=== PATIENT | male | born 1960 | race Caucasian/White ===

== ENCOUNTER 2016-03-07 | Emergency (ER) | payer MEDICARE, OTHER ==
--- NOTE | 2016-03-07 12:28 | ED Physician Documentation ---
PD HPI URI - Stated complaint Stated Complaint: COUGH - Chief complaint Chief Complaint: Resp - History obtained from History obtained from: Patient - History of Present Illness Timing - onset: Other (This is a type II diabetic has been sick for about 8 days with a productive cough, been bloody, now yellow. He also has body aches, resolved vomiting and diarrhea, persistent headache. His is now ill with a similar illness. No recent travel.) Review of Systems Constitutional: reports: Chills, Myalgias, Fatigue Ears: denies: Ear pain Nose: reports: Rhinorrhea / runny nose Throat: reports: Sore throat Respiratory: reports: Cough. denies: Dyspnea GI: denies: Abdominal Pain PD PAST MEDICAL HISTORY - Past Medical History Cardiovascular: Hypertension, High cholesterol Neuro: Peripheral neuropathy Endocrine/Autoimmune: Type 2 diabetes GI: GERD Musculoskeletal: Chronic back pain - Past Surgical History Past Surgical History: Yes General: Appendectomy - Present Medications Home Medications: Ambulatory Orders Medication Instructions Recorded Confirmed Aspirin [Aspir 81] 1 tab PO DAILY 07/07/14 07/07/14 Atorvastatin [Lipitor] 40 mg PO DAILY 07/07/14 07/07/14 Esomeprazole Magnesium [Nexium] 40 mg PO BID 07/07/14 07/07/14 Fenofibrate 1 tab PO DAILY 07/07/14 07/07/14 Gabapentin 800 mg PO TID #20 tablet 07/07/14 Gabapentin 800 mg PO TID PRN 07/07/14 07/07/14 Loperamide HCl [Loperamide] 2 cap PO TID PRN 07/07/14 07/07/14 Metoprolol Xl 200 mg PO DAILY 07/07/14 07/07/14 Oxycodone HCl/Acetaminophen 1 - 2 tab PO TID PRN 07/07/14 07/07/14 [Percocet 5-325 mg Tablet] amLODIPine [Norvasc] 10 mg PO DAILY 07/07/14 07/07/14 Cephalexin [Keflex] 500 mg PO Q6H 7 Days 11/08/15 Doxycycline Hyclate 100 mg PO BID #14 tablet 03/07/16 guaiFENesin/CODEINE [Robitussin AC] 5 - 10 ml PO Q6H PRN #120 ml 03/07/16 - Allergies Allergies/Adverse Reactions: Allergies Allergy/AdvReac Type Severity Reaction Status Date / Time amitriptyline AdvReac Intermediate Dizziness Verified 07/07/14 03:59 tramadol AdvReac Intermediate Dizziness Verified 07/07/14 04:00 - Social History Does the pt smoke?: No Smoking Status: Never smoker Does the pt drink ETOH?: Yes Does the pt have substance abuse?: No - Immunizations Immunizations are current?: Yes Immunizations: TDAP current <10years - POLST Patient has POLST: No PD ED PE NORMAL - Vitals Vital signs reviewed: Yes - General General: Alert and oriented X 3, No acute distress - HEENT HEENT: PERRL, EOMI, Ears normal, Pharynx benign - Neck Neck: Supple, no meningeal sign, No bony TTP - Cardiac Cardiac: RRR, No murmur - Respiratory Respiratory: No respiratory distress, Other (Slightly diminished throughout with mild rhonchi at both bases) - Abdomen Abdomen: Soft, Non tender - Derm Derm: No rash - Neuro Neuro: Alert and oriented X 3, Normal speech - Psych Psych: Normal mood, Normal affect Results - Vitals Vitals: Vital Signs - 24 hr 03/07/16 11:41 Temperature 37.2 C Heart Rate 53 L Respiratory 18 Rate Blood Pressure 185/66 H O2 Saturation 99 Oxygen O2 Source Room air PD MEDICAL DECISION MAKING - ED course ED course: This is a type II diabetic with post-influenza bronchitis, given the underlying diabetes I will treat with antibiotics. Departure - Departure Disposition: 01 Home, Self Care Clinical Impression: Bronchitis Condition: Good Record reviewed to determine appropriate education?: Yes Instructions: ED Bronchitis Abx Tx Prescriptions: Doxycycline Hyclate 100 mg PO BID #14 tablet guaiFENesin/CODEINE [Robitussin AC] 5 - 10 ml PO Q6H PRN #120 ml PRN Reason: Cough Comments: Call your doctor to arrange a follow up appointment. Make the next available appointment. In the interim return anytime if worse or if new symptoms develop. Your blood pressure was elevated today on check in to the emergency department. This does not mean that you have hypertension, it is a common phenomenon to check into the emergency department and have elevated blood pressure. I recommend that you see your primary care physician within the week to have it rechecked when you're feeling better.
== END 2016-03-07 12:35 | disposition home or self-care (01) ==
CPT/HCPCS: 99283

== ENCOUNTER 2016-06-08 12:01 | Emergency (ER) | payer MEDICARE, OTHER | END 2016-06-08 13:55 | disposition left against medical advice (07) | DX: Z53.21 Procedure and treatment not carried out due to patient leaving prior to being seen by health care provider (principal) ==

== ENCOUNTER 2019-03-11 09:07 | Outpatient (CLI) | payer MEDICARE, OTHER ==
[2019-03-11 09:42] LABS: CALCIUM 9.1 mg/dL (8.5-10.3); CREATININE 1.4 mg/dL (0.6-1.2)
== END 2019-03-11 09:08 | disposition home or self-care (01) ==
LOC: LAB 09:07
PROVIDERS: ATTEND Internal Medicine
DX: E87.5 Hyperkalemia (principal)
CPT/HCPCS: 36415; 80048

== ENCOUNTER 2020-08-10 15:05 | Emergency (ER) | payer MEDICARE, OTHER ==
--- NOTE | 2020-08-10 15:58 | ED Physician Documentation ---
History of Present Illness - Stated complaint Stated Complaint: LT HAND INJ/GLF - Chief complaint Chief Complaint: Trauma Ext - History obtained from History obtained from: Patient - History of Present Illness Pain level max: 4 Pain level now: 3 - Additonal information Additional information: Patient is a 60-year-old male who presents to the emergency department after a trip and fall onto the left hand and left wrist earlier today at home. He states he tripped over his cat. This occurred about 2 hours prior to arrival. Worse with movement, better with rest. Noted swelling and bruising to the left hand and wrist. Concerned about potential fracture. Review of Systems Constitutional: denies: Fever, Chills Skin: denies: Rash Musculoskeletal: denies: Neck pain, Back pain Neurologic: denies: Headache PD PAST MEDICAL HISTORY - Past Medical History Past Medical History: Yes Cardiovascular: Hypertension, High cholesterol Respiratory: None Neuro: Peripheral neuropathy Endocrine/Autoimmune: Type 2 diabetes GI: GERD : Other HEENT: None Psych: None Musculoskeletal: Chronic back pain Derm: Other Other Past Medical History: kidney injury - Past Surgical History Past Surgical History: Yes General: Appendectomy - Present Medications Home Medications: Ambulatory Orders Medication Instructions Recorded Confirmed Aspirin [Aspir 81] 1 tab PO DAILY 07/07/14 08/10/20 Atorvastatin [Lipitor] 40 mg PO DAILY 07/07/14 08/10/20 Gabapentin 800 mg PO TID #20 tablet 07/07/14 08/10/20 amLODIPine [Norvasc] 10 mg PO DAILY 07/07/14 08/10/20 Amox/Clav 500/125 [Augmentin 1 tab PO BID 08/10/20 08/10/20 500/125] Esomeprazole Magnesium [Nexium 20 mg PO DAILY 08/10/20 08/10/20 24Hr] Furosemide [Lasix] 20 mg PO DAILY 08/10/20 08/10/20 Furosemide [Lasix] 40 mg PO QPM 08/10/20 08/10/20 Insulin Glargine [Lantus Solostar] 12 units SUBQ DAILY 08/10/20 08/10/20 Loperamide [Imodium] 2 mg PO PRN PRN 08/10/20 08/10/20 Tamsulosin [Flomax] 0.4 mg PO DAILY 08/10/20 08/10/20 oxyCODONE ER [OxyCONTIN] 30 mg PO BID 08/10/20 08/10/20 oxyCODONE [Roxicodone] 10 mg PO Q6H 08/10/20 08/10/20 - Allergies Allergies/Adverse Reactions: Allergies Allergy/AdvReac Type Severity Reaction Status Date / Time amitriptyline AdvReac Intermediate Dizziness Verified 08/10/20 15:13 tramadol AdvReac Intermediate Dizziness Verified 08/10/20 15:13 - Social History Does the pt smoke?: No Smoking Status: Never smoker Does the pt drink ETOH?: Yes Does the pt have substance abuse?: No - Immunizations Immunizations are current?: Yes Immunizations: TDAP current <10years - POLST Patient has POLST: No PD ED PE NORMAL - Vitals Vital signs reviewed: Yes - General General: Alert and oriented X 3, No acute distress - HEENT HEENT: Moist mucous membranes - Neck Neck: Supple, no meningeal sign - Derm Derm: Warm and dry - Extremities Extremities: Other (Tender to palpation over the left hand and left wrist. Mild swelling. Mild ecchymosis. Neurovascular intact. No snuffbox tenderness. The tenderness is over the entire dorsum of the left hand and the volar aspect of the left wrist) - Neuro Neuro: Alert and oriented X 3 - Psych Psych: Normal mood, Normal affect Results - Vitals Vitals: Vital Signs - 24 hr 08/10/20 08/10/20 15:10 16:57 Temperature 37.2 C Heart Rate 73 77 Respiratory 16 18 Rate Blood Pressure 173/53 H 180/68 H O2 Saturation 97 97 Oxygen O2 Source Room air - Rads (name of study) Left hand x-ray Radiology: Prelim report reviewed, EMP read contemporaneously, See rad report (1. Comminuted, angulated base of fifth metacarpal fracture involving the articular surface. 2. Extensive small vessel calcifications typically indicates the presence of diabetes. ) Left wrist x-ray Radiology: Prelim report reviewed, EMP read contemporaneously, See rad report (1. Comminuted, angulated base of fifth metacarpal fracture involving the articular surface. 2. Extensive small vessel calcifications typically indicates the presence of diabetes. ) Procedures - Splint (location) Left hand Splint applied by: Physician, Tech Type of splint: Short arm, Volar cock up Other: Patient tolerated well, No complications, Neurovascular intact PD MEDICAL DECISION MAKING - ED course Complexity details: reviewed results, re-evaluated patient, considered differential, d/w patient ED course: Patient with a fracture at the base of the fifth metacarpal. Placed in a volar splint. Tolerated well. He will follow up with orthopedics for further care. Neurovascularly intact. Patient counseled regarding signs and symptoms for which I believe and urgent re-evaluation would be necessary. Patient with good understanding of and agreement to plan and is comfortable going home at this time This document was made in part using voice recognition software. While efforts are made to proofread this document, sound alike and grammatical errors may occur. Departure - Departure Disposition: 01 Home, Self Care Clinical Impression: Closed fracture of 5th metacarpal Qualifiers: Encounter type: initial encounter Metacarpal location: base Fracture alignment: displaced Laterality: left Qualified Code(s): S62.317A - Displaced fracture of base of fifth metacarpal bone, left hand, initial encounter for closed fracture Condition: Good Instructions: ED Fx Hand Closed Follow-Up: ASH CARTER MD [Primary Care Provider] - [facility] [Provider Group] - Within 1 week Comments: You have a fracture at the base of your fifth metacarpal. Please follow-up with orthopedics within about a week for repeat evaluation and to see if this needs any further treatment. Stay in the splint until that time. Return if you worsen
--- NOTE | 2020-08-10 16:17 | XRAY Report ---
PROCEDURE: Hand 3 View LT INDICATIONS: Trauma TECHNIQUE: 3 views of the hand(s) acquired. COMPARISON: Left wrist from the same date FINDINGS: Bones: Comminuted mildly displaced mildly angulated fracture of the base of the fifth metacarpal exte nding to the articular surface. No other fractures or dislocations noted. No suspicious bony lesions. Soft tissues: No suspicious soft tissue calcifications. Extensive vascular calcifications are consi stent with diabetes. IMPRESSION: 1. Comminuted angulated base of fifth metacarpal fracture extending to the articular surface. 2. Extensive vascular calcifications, typically representing sequelae of diabetes. Hyperparathyroidis m can cause the same finding. Reviewed by: Amilcar Ramachandran MD on 08/10/2020 3:16 PM [facility] Approved by: Amilcar Ramachandran MD on 08/10/2020 3:16 PM [facility] Station ID: [id number]
--- NOTE | 2020-08-10 16:30 | XRAY Report ---
PROCEDURE: Wrist 4 View LT INDICATIONS: Trauma TECHNIQUE: 4 views of the wrist were acquired. COMPARISON: Left hand from the same date FINDINGS: Bones: Comminuted, angulated base of fifth metacarpal fracture involving the articular surface. No ot her fractures or dislocations. No suspicious bony lesions. Scaphoid view: Scaphoid intact Soft tissues: No suspicious soft tissue calcifications. Extensive small vessel calcifications. IMPRESSION: 1. Comminuted, angulated base of fifth metacarpal fracture involving the articular surface. 2. Extensive small vessel calcifications typically indicates the presence of diabetes. Reviewed by: Amilcar Ramachandran MD on 08/10/2020 3:28 PM [facility] Approved by: Amilcar Ramachandran MD on 08/10/2020 3:28 PM [facility] Station ID: [id number]
[2020-08-10 16:58] VITALS: BP 180/68
== END 2020-08-10 17:00 | disposition home or self-care (01) ==
LOC: ED 15:05
DX: S62.317A Displaced fracture of base of fifth metacarpal bone, left hand, initial encounter for closed fracture (principal); W01.0XXA Fall on same level from slipping, tripping and stumbling without subsequent striking against object, initial encounter; Y92.009 Unspecified place in unspecified non-institutional (private) residence as the place of occurrence of the external cause
CPT/HCPCS: 29125; 99283; 99284

== ENCOUNTER 2020-08-12 14:59 | Emergency (ER) | payer MEDICARE, OTHER ==
[2020-08-12 15:11] VITALS: BP 180/66
--- NOTE | 2020-08-12 15:11 | ED Physician Documentation ---
PD HPI WOUND RECHECK - Stated complaint Stated Complaint: LT ARM TURNING BLUE - Chief complaint Chief Complaint: Ext Problem - Histroy obtained from History obtained from: Patient - History of Present Illness Location: Left Hand Timing - onset: Today Associated symptoms: Other (he noted purple/blue color of left palm today when he unwrapped ivis partly after it got wet (the wrap of his splint). He had been in ER 2 days ago for boxers fracture. With splint in place.) Review of Systems Skin: denies: Abrasion (s), Laceration (s) Neurologic: denies: Focal weakness, Numbness PD PAST MEDICAL HISTORY - Past Medical History Cardiovascular: Hypertension, High cholesterol Respiratory: None Neuro: Peripheral neuropathy Endocrine/Autoimmune: Type 2 diabetes GI: GERD : Other HEENT: None Psych: None Musculoskeletal: Chronic back pain Derm: Other - Past Surgical History Past Surgical History: Yes General: Appendectomy - Present Medications Home Medications: Ambulatory Orders Medication Instructions Recorded Confirmed Aspirin [Aspir 81] 1 tab PO DAILY 07/07/14 08/10/20 Atorvastatin [Lipitor] 40 mg PO DAILY 07/07/14 08/10/20 Gabapentin 800 mg PO TID #20 tablet 07/07/14 08/10/20 amLODIPine [Norvasc] 10 mg PO DAILY 07/07/14 08/10/20 Amox/Clav 500/125 [Augmentin 1 tab PO BID 08/10/20 08/10/20 500/125] Esomeprazole Magnesium [Nexium 20 mg PO DAILY 08/10/20 08/10/20 24Hr] Furosemide [Lasix] 20 mg PO DAILY 08/10/20 08/10/20 Furosemide [Lasix] 40 mg PO QPM 08/10/20 08/10/20 Insulin Glargine [Lantus Solostar] 12 units SUBQ DAILY 08/10/20 08/10/20 Loperamide [Imodium] 2 mg PO PRN PRN 08/10/20 08/10/20 Tamsulosin [Flomax] 0.4 mg PO DAILY 08/10/20 08/10/20 oxyCODONE ER [OxyCONTIN] 30 mg PO BID 08/10/20 08/10/20 oxyCODONE [Roxicodone] 10 mg PO Q6H 08/10/20 08/10/20 - Allergies Allergies/Adverse Reactions: Allergies Allergy/AdvReac Type Severity Reaction Status Date / Time amitriptyline AdvReac Intermediate Dizziness Verified 08/12/20 15:04 tramadol AdvReac Intermediate Dizziness Verified 08/12/20 15:04 - Social History Does the pt smoke?: No Smoking Status: Never smoker Does the pt drink ETOH?: Yes Does the pt have substance abuse?: No - Immunizations Immunizations are current?: Yes Immunizations: TDAP current <10years - POLST Patient has POLST: No PD ED PE NORMAL - Vitals Vital signs reviewed: Yes - General General: Alert and oriented X 3, No acute distress, Well developed/nourished - Extremities Extremities: Other (left hand examined after unwrapping the padding and splint. I see purple bruising in palm in area of fracture. No skin break. No redness. ) - Neuro Neuro: Alert and oriented X 3, No motor deficit, No sensory deficit, Normal speech Results - Vitals Vitals: Oxygen O2 Source Room air PD MEDICAL DECISION MAKING - ED course Complexity details: considered differential (just bruising coming from deeper layer at the fracture. ), d/w patient Departure - Departure Disposition: 01 Home, Self Care Clinical Impression: Aftercare for cast or splint check or change Traumatic ecchymosis of left hand Qualifiers: Encounter type: subsequent encounter Qualified Code(s): S60.222D - Contusion of left hand, subsequent encounter Condition: Stable Record reviewed to determine appropriate education?: Yes Comments: This appears to be just bruising coming to the surface from the fracture. Continue your splint care and treatment as previously directed. Follow-up as previously directed. Discharge Date/Time: 08/12/20 15:30
== END 2020-08-12 15:30 | disposition home or self-care (01) ==
LOC: ED 14:59
DX: S62.92XD Unspecified fracture of left hand, subsequent encounter for fracture with routine healing (principal); S60.222A Contusion of left hand, initial encounter; I10 Essential (primary) hypertension; E11.42 Type 2 diabetes mellitus with diabetic polyneuropathy; Z79.4 Long term (current) use of insulin
CPT/HCPCS: 99281

== ENCOUNTER 2022-01-04 06:40 | Outpatient (CLI) | payer MEDICARE, OTHER | END 2022-01-04 06:41 | disposition short-term general hospital (02) | LOC: EMS 06:40 | DX: E10.649 Type 1 diabetes mellitus with hypoglycemia without coma (principal) | CPT/HCPCS: A0425; A0427; A0888 ==

== ENCOUNTER 2022-01-15 17:22 | Outpatient (CLI) | payer MEDICARE, OTHER | END 2022-01-15 17:23 | disposition E | LOC: EMS 17:22 | DX: I46.9 Cardiac arrest, cause unspecified (principal) | CPT/HCPCS: A0425; A0428 ==